=== PATIENT | male | born 2005 | race Two or more races ===

== ENCOUNTER 2024-09-05 07:00 | Day surgery (SDC) | payer MEDICAID, SELFPAY ==
[2024-09-04 14:20] VITALS: BMI 40.4
[2024-09-05] VITALS (8 sets, daily range): BP systolic 125–146; BP diastolic 66–91; PULSE 69–98; RESP 10–18; TEMP 36.5–36.6; O2SAT 94–99; BMI 40.1
[2024-09-05] MEDS: SODIUM CHLORIDE 0.9% 500 ML 500 ML 125 ML IV (07:46)
[2024-09-05] MEDS: DiphenhydrAMINE INJ 50 MG/ML VIAL 25 MG IVP (07:47)
[2024-09-05] MEDS: fentaNYL CIT INJ 50 mCg/ML AMP 2ML (ASD USE ONLY) IVP (07:51)
[2024-09-05] MEDS: MIDAZOLAM INJ 1 MG/ML VIAL 2 ML (ASD USE ONLY) 2 MG IVP (07:51)
[2024-09-05] MEDS: LIDOCAINE JELLY 2% (Urojet) 10 ML TUBE TOP (08:14)
== END 2024-09-05 08:45 | disposition home or self-care (01) ==
PROVIDERS: PCP Family Medicine; Referring Provider Surgery; Visit Provider Surgery
PROC: 0DBE8ZX Excision of Large Intestine, Via Natural or Artificial Opening Endoscopic, Diagnostic (ICD-10-PCS; CPT 45380; principal; 2024-09-05 08:00)
DX: K64.0 First degree hemorrhoids (principal); K64.4 Residual hemorrhoidal skin tags
CPT/HCPCS: 45378; J1200; J2250; J3010; J7040